=== PATIENT | male | born 1980 | race Two or more races ===

== ENCOUNTER 2020-03-14 08:41 | Outpatient (RCR) | payer OTHER, SELFPAY | END 2020-03-15 23:59 | LOC: EMPH 08:41 | PROVIDERS: Visit Provider Family Medicine Geriatric Medicine | DX: Z11.59 Encounter for screening for other viral diseases (principal) | CPT/HCPCS: 87635; U0003 ==

== ENCOUNTER 2020-04-11 08:52 | Outpatient (RCR) | payer OTHER, SELFPAY | END 2020-04-15 23:59 | LOC: EMPH 08:52 | PROVIDERS: Visit Provider Family Medicine Geriatric Medicine | DX: Z03.818 Encounter for observation for suspected exposure to other biological agents ruled out (principal) | CPT/HCPCS: 87426 ==